=== PATIENT | male | born 1975 | race Caucasian/White ===

== ENCOUNTER 2018-11-27 05:52 | Emergency (ER) | payer BC ==
[2018-11-27] MEDS ORDERED: Famotidine IV* 10 MG/ML 2 ML (20 mg) ONE (05:55)
--- NOTE | 2018-11-27 06:03 | ED ---
Throat Pain/Nasal Congestion - HPI Summary HPI Summary: Pt. is a 43 y.o male who presents to the ER via EMS for swelling to uvula and possible allergic rxn. Pt. states he is from [place] and was visiting [place] for the night. Pt. states he woke up around 0430 with swelling to his uvula and difficulty swallowing. Pt. used his epipen, took benadryl and called 911. Pt. received IV benadryl and decadron in route. Pt. states this has happened one other time when he was camping. Pt. states he has seen an media intern and they cannot find a cause. Pt. states he has no known allergies. He does have seasonal allergies and take zyrtec daily. Pt. states he did sleep with the window open last night but otherwise denies any new exposures. Pt. starting to feel better in the ER. No associated sxs of rash, facial swelling, SOB, recent illness, fever. Sxs are moderate in severity. No current modifying factors. - History of Current Complaint Time Seen by Provider: 11/27/18 05:55 Hx Obtained From: Patient - Allergies/Home Medications Allergies/Adverse Reactions: Allergies Allergy/AdvReac Type Severity Reaction Status Date / Time No Known Allergies Allergy Verified 11/27/18 05:53 Home Medications: Home Medications Advil TAB* 200 mg PO DAILY PRN 11/27/18 [History Confirmed 11/27/18] Epipen 1 unit IM DAILY PRN 11/27/18 [History Confirmed 11/27/18] Levothyroxine TAB* 125 mcg PO DAILY 11/27/18 [History Confirmed 11/27/18] Omeprazole 20 mg PO DAILY 11/27/18 [History Confirmed 11/27/18] PMH/Surg Hx/FS Hx/Imm Hx Previously Healthy: Yes - Family History Known Family History: Positive: Non-Contributory - Social History Occupation: Employed Full-time Lives: With Family Review of Systems Constitutional: Negative Negative: Fever, Chills Eyes: Negative Positive: Other - uvula swelling Cardiovascular: Negative Respiratory: Negative Negative: Shortness Of Breath Skin: Negative Negative: Rash All Other Systems Reviewed And Are Negative: Yes Physical Exam Triage Information Reviewed: Yes Vital Signs Reviewed: Yes Appearance: Positive: Well-Appearing - Pt. sitting up in bed in NAD. Breathing easily on RA. Skin: Positive: Warm, Dry Head/Face: Positive: Normal Head/Face Inspection Eyes: Positive: Normal, EOMI, KARRI, Conjunctiva Clear ENT: Positive: TMs normal, Other - Mild edema to uvula. Tonsils mildly edematous. Uvula is midline. No Muffled voice, drooling or trismus. Neck: Positive: Supple Respiratory/Lung Sounds: Positive: Clear to Auscultation, Breath Sounds Present. Negative: Rales, Rhonchi, Wheezes Cardiovascular: Positive: Normal, RRR Neurological: Positive: Normal, CN Intact II-III Psychiatric: Positive: Affect/Mood Appropriate EENT Course/Dx - Course Course Of Treatment: Pt. presenting with mild uvulitis. Suspect cause is allergic given hx. VS stable. Pt. breathing easily and tolerating secretions. He has no rash, wheeze, or signs of anaphylaxis. Pt. has already received IV benadryl and decadron and IM epi. He notes swelling feels it is improving a bit. Pt. observed in ED for 2 hours without rebound sxs. Swelling is minimal. Case discussed with Dr. Welsh who agrees with dc. Pt. notes he driving back to [place] now for family event and would like to get rx in [place] at his pharmacy. Rx for epipen, prednisone and pepcid called into his pharmacy. He will f.u with his ENT and media intern. Will return to ER if sxs change or worsen. Pt.understands and agrees with plan. - Differential Diagnoses Differential Diagnoses: Allergic Rhinitis, Cellulitis, Epiglottitis, Tonsilitis - Diagnoses Provider Diagnoses: Uvulitis Discharge - Sign-Out/Discharge Documenting (check all that apply): Patient Departure Patient Received Moderate/Deep Sedation with Procedure: No - Discharge Plan Condition: Improved Disposition: HOME Patient Education Materials: Uvulitis (ED) Referrals: [facility] [Outside] Additional Instructions: Follow up with your PCP as soon as possible Pleaes hop picker your prescriptions at your pharmacy today and take as directed Return to ER if symptoms change or worsen - Billing Disposition and Condition Condition: IMPROVED Disposition: Home
[2018-11-27 08:00] VITALS: BP 138/100
== END 2018-11-27 07:58 | disposition home or self-care (01) ==
LOC: ED 05:52
DX: K12.2 Cellulitis and abscess of mouth (principal)
CPT/HCPCS: 99283